=== PATIENT | male | born 1960 | race Asian ===

== ENCOUNTER 2020-09-06 16:40 | Emergency (ER) | payer OTHER ==
[~2020-09-06] VITALS: Ht 154.9 cm; Wt 52.3 kg
[2020-09-06] MEDS ORDERED: SODIUM CHLORIDE 0.9% 250 ML IRRIG SOLUTION BOTTLE IRRIG ONE (17:30)
[2020-09-06] MEDS ORDERED: PERTUSS(ACELL),DIPH,TET VAC/PF 0.5 ML SYRINGE IM. ONE (17:30)
[2020-09-06] MEDS ORDERED: LIDOCAINE 1% 10 ML VIAL ID ONE (18:45)
[2020-09-06] MEDS ORDERED: BACITRACIN 0.9 GM PACKET OINTMENT TP ONE (19:15)
[2020-09-06 19:25] VITALS: BP 137/89
== END 2020-09-06 19:50 | disposition home or self-care (01) ==
LOC: EMS 16:59
DX: S01.81XA Laceration without foreign body of other part of head, initial encounter (principal); I10 Essential (primary) hypertension; W20.8XXA Other cause of strike by thrown, projected or falling object, initial encounter; Y93.89 Activity, other specified; Y92.89 Other specified places as the place of occurrence of the external cause; Y99.0 Civilian activity done for income or pay
CPT/HCPCS: 12013; 90471; 90715; 99283; J3490